=== PATIENT | female | born 1975 | race Caucasian/White ===

== ENCOUNTER 2018-07-31 09:21 | Day surgery (SDC) | payer OTHER ==
[~2018-07-31] VITALS: Ht 157.5 cm; Wt 56.7 kg
[2018-07-31] MEDS ORDERED: ceFAZolin 1,000 MG VIAL ONE (11:12)
[2018-07-31] MEDS ORDERED: DEXAMETHASONE 4 MG/ML VIAL ONE (11:50)
[2018-07-31] MEDS ORDERED: SUCCINYLCHOLINE CHLORIDE 200 MG/10 ML VIAL IVP ONE (11:50)
[2018-07-31] MEDS ORDERED: KETOROLAC 30 MG/ML VIAL ONE (11:50)
[2018-07-31] MEDS ORDERED: PROPOFOL 200 MG/20 ML VIAL IV ONE (11:50)
[2018-07-31] MEDS ORDERED: SEVOFLURANE 250 ML BTL INH ONE (11:50)
[2018-07-31] MEDS ORDERED: ONDANSETRON 4 MG/2 ML VIAL ONE (11:50)
[2018-07-31] MEDS ORDERED: MEPERIDINE 50 MG/ML SYR ONE (11:51)
[2018-07-31] MEDS ORDERED: MIDAZOLAM 2 MG/2 ML VIAL ONE (11:51)
[2018-07-31] MEDS ORDERED: fentaNYL 0.05 MG/ML VIAL ONE (11:51)
[2018-07-31] MEDS ORDERED: LACTATED RINGERS 1,000 ML IV SCH (12:24)
[2018-07-31] MEDS ORDERED: ONDANSETRON 4 MG/2 ML VIAL IVP PRN (12:25)
[2018-07-31] MEDS ORDERED: HYDROmorphone 1 MG/ML AMP IVP PRN (12:25)
[2018-07-31] MEDS ORDERED: diphenhydrAMINE 50 MG/ML VIAL IVP PRN (12:25)
[2018-07-31] MEDS ORDERED: NACL 0.9% 1,000 ML IV SCH (13:04)
[2018-07-31] MEDS ORDERED: ONDANSETRON 4 MG/2 ML VIAL IV PRN (13:05)
[2018-07-31] MEDS ORDERED: HYDROcodone/APAP 5/325 MG 1 TAB TAB PO PRN (13:05)
[2018-07-31] MEDS ORDERED: MORPHINE SULFATE 4 MG/ML SYR IV PRN (13:05)
[2018-07-31] MEDS: MEPERIDINE 25 MG/ML SYR IVP PRN (13:15)
[2018-07-31] MEDS ORDERED: MEPERIDINE 25 MG/ML SYR ONE (13:17)
[2018-07-31] MEDS: HYDROmorphone 1 MG/ML AMP IVP PRN (13:55)
[2018-07-31] MEDS: BUPIVACAINE-MPF/EPI 0.25% 30 ML VIAL INJ ONE (14:00)
== END 2018-07-31 14:40 | disposition home or self-care (01) ==
LOC: MMU 09:21 → MDS 09:21
PROVIDERS: ATTEND Surgery
DX: K42.9 Umbilical hernia without obstruction or gangrene (principal); E03.9 Hypothyroidism, unspecified; Z98.890 Other specified postprocedural states; Z80.0 Family history of malignant neoplasm of digestive organs; Z83.3 Family history of diabetes mellitus
CPT/HCPCS: 49585; 71045; 93005; J0330; J0690; J1100; J1170; J1885; J2175; J2250; J2405; J2704; J3010; J3490; J7060; J7120